=== PATIENT | male | born 1975 ===

== ENCOUNTER → 2024-03-27 13:34 | Outpatient (CLI) | payer OTHER | END | disposition home or self-care (01) | LOC: LAB 13:34 | DX: L02.91 Cutaneous abscess, unspecified (principal) ==

== ENCOUNTER 2024-06-05 15:28 | Outpatient (CLI) | payer OTHER | END 2024-06-05 16:21 | disposition home or self-care (01) | LOC: LAB 15:28 | PROVIDERS: ATTEND Specialist | DX: L02.91 Cutaneous abscess, unspecified (principal) ==

== ENCOUNTER 2025-03-03 14:36 | Outpatient (CLI) | payer OTHER | END 2025-03-03 14:39 | disposition home or self-care (01) | LOC: LAB 14:36 | PROVIDERS: ATTEND Specialist | DX: L02.91 Cutaneous abscess, unspecified (principal) ==

== ENCOUNTER 2025-03-24 13:44 | Outpatient (CLI) | payer OTHER | END 2025-03-24 13:48 | disposition home or self-care (01) | LOC: LAB 13:44 | PROVIDERS: ATTEND Specialist | DX: L02.91 Cutaneous abscess, unspecified (principal) ==